=== PATIENT | female | born 1940 | race Caucasian/White ===

== ENCOUNTER 2018-02-15 12:30 | Outpatient (CLI) | payer MEDICARE, MEDICAID ==
[~2018-02-15 12:30] MED LIST: ALBU18HF2 INH; ASPI-1265 PO; ATOR10TA87 PO; BACL10TA PO; BUDE10.2 IH; BUPR150T8 PO; CITA-278 PO; CLOP75TA35 PO; DILT120C52 PO; FENO160T13 PO; IBUP-1984 PO; PANT40TA4 PO; PRAV40TA3 PO; PRED10TA PO
== END 2018-02-15 23:59 | disposition home or self-care (01) ==
LOC: 64 CT 12:30
PROVIDERS: ATTEND Nurse Practitioner
DX: I67.82 Cerebral ischemia (principal); G44.52 New daily persistent headache (NDPH); I10 Essential (primary) hypertension; J45.909 Unspecified asthma, uncomplicated; Z87.891 Personal history of nicotine dependence; Z90.710 Acquired absence of both cervix and uterus; Z79.82 Long term (current) use of aspirin; W19.XXXA Unspecified fall, initial encounter; Y93.89 Activity, other specified; Y92.89 Other specified places as the place of occurrence of the external cause; Y99.8 Other external cause status
CPT/HCPCS: 70450

== ENCOUNTER 2022-12-12 11:02 | Emergency (ER) | payer MEDICARE, MEDICAID ==
[~2022-12-12] VITALS: Ht 162.6 cm; Wt 64.0 kg
[~2022-12-12 11:02] MED LIST changes: -CITA-278 PO; +CITA20TA28 PO; +CLOP75TA34 PO; -CLOP75TA35 PO; -PANT40TA4 PO; +PANT40TA54 PO
[2022-12-12 13:00] VITALS: BP 138/86
== END 2022-12-12 14:17 | disposition home or self-care (01) ==
LOC: ER 11:02
DX: S51.811A Laceration without foreign body of right forearm, initial encounter (principal); S61.012A Laceration without foreign body of left thumb without damage to nail, initial encounter; S00.81XA Abrasion of other part of head, initial encounter; Y99.8 Other external cause status; E78.00 Pure hypercholesterolemia, unspecified; I51.9 Heart disease, unspecified; J44.9 Chronic obstructive pulmonary disease, unspecified; E11.9 Type 2 diabetes mellitus without complications; F32.A Depression, unspecified; Z88.2 Allergy status to sulfonamides; Z88.8 Allergy status to other drugs, medicaments and biological substances; Z79.899 Other long term (current) drug therapy; Z79.1 Long term (current) use of non-steroidal anti-inflammatories (NSAID); Z79.2 Long term (current) use of antibiotics; W18.39XA Other fall on same level, initial encounter; Z91.81 History of falling; Y93.89 Activity, other specified; Y92.89 Other specified places as the place of occurrence of the external cause
CPT/HCPCS: 70450; 71101; 72125; 99284; A6222; A6258; A6446; A6449

== ENCOUNTER 2023-01-27 16:29 | Emergency (ER) | payer MEDICARE, MEDICAID ==
[~2023-01-27] VITALS: Ht 162.6 cm; Wt 63.6 kg
[2023-01-27 16:38] VITALS: PULSE 64; RESP 16; TEMP 96; O2SAT 83
--- NOTE | 2023-01-27 16:38 | NUR ---
pt was unable to sit still during triage, her daughter had her arm across the front of the wheelchair in efforts to prevent the pt from throwing herself off of the wheelchair. because of this a blood pressure reading was not able to be obtained and the triage nurse did not want to hold off on the ct scan to keep attempting a bp reading for a third time. the daughter was offered for them to stay in room 19 away from all of the noise stimulation in the lobby for pt comfort. daughter was reaffirmed to contact triage nurse or any other staff if there was any assistance needed, the daughter was very appreciative of this and agreed that this was the best course of action at this time.
--- NOTE | 2023-01-27 16:39 | NUR ---
when asked if the pt uses O2 at home the pt's daughter reports that her mother does not use oxygen at home. she reports that after she walks or sits upright her O2 jumps back up within normal limits.
--- NOTE | 2023-01-27 18:52 | NUR ---
notified [facility], she states she will call back with a time. Trying to contact digital technician, however, Marcia connected but received voicemail. Called Marcia back, and it is stuck on a recording. Will reattempt in a bit.
--- NOTE | 2023-01-27 19:29 | NUR ---
spoke to Gaston Coronor Jose Alberto and he is releasing body to home.
--- NOTE | 2023-01-27 19:34 | NUR ---
[facility] notified: case # [id number]. Pt is not a candidate.
--- NOTE | 2023-01-27 19:51 | NUR ---
here to pick her up
== END 2023-01-27 19:55 ==
LOC: ER 16:30
DX: S00.212A Abrasion of left eyelid and periocular area, initial encounter (principal); E78.00 Pure hypercholesterolemia, unspecified; I10 Essential (primary) hypertension; J44.9 Chronic obstructive pulmonary disease, unspecified; K21.9 Gastro-esophageal reflux disease without esophagitis; E11.9 Type 2 diabetes mellitus without complications; Z88.2 Allergy status to sulfonamides; Z79.899 Other long term (current) drug therapy; Z79.82 Long term (current) use of aspirin; Z79.1 Long term (current) use of non-steroidal anti-inflammatories (NSAID); Z90.710 Acquired absence of both cervix and uterus; Z98.890 Other specified postprocedural states; W19.XXXA Unspecified fall, initial encounter; Y93.89 Activity, other specified; Y92.89 Other specified places as the place of occurrence of the external cause; Y99.8 Other external cause status
CPT/HCPCS: 70450; 99285